=== PATIENT | male | born 1970 | race Two or more races ===

== ENCOUNTER 2023-06-10 11:08 | Emergency (ER) | payer BC, OTHER ==
[~2023-06-10] VITALS: Ht 167.6 cm; Wt 96.9 kg
[2023-06-10] MEDS ORDERED: ACET500T58 PO (12:35)
[2023-06-10] MEDS ORDERED: AUG875T PO (12:35)
[2023-06-10] MEDS ORDERED: PROM1SOL4 PO (12:35)
[2023-06-10] MEDS: PROMETHAZINE W/CODEINE 5 ML ORAL SYRUP PO ONE (12:45)
[2023-06-10 13:08] VITALS: BP 160/96; PULSE 98; RESP 16; TEMP 98.1; O2SAT 97
== END 2023-06-10 14:21 | disposition home or self-care (01) ==
LOC: ER 11:08
DX: J40 Bronchitis, not specified as acute or chronic (principal)
CPT/HCPCS: 71046